=== PATIENT | female | born 1990 | race American Indian/Alaskan Native ===

== ENCOUNTER 2017-05-26 07:35 | Day surgery (SDC) | payer OTHER ==
[~2017-05-26 07:35] MED LIST: ANCEF/STERILE WATER 2 GM/20 ML 2 GM/20 ML SYRINGE IV NR; DECADRON ONE; DILAUDID ONE; DIPRIVAN 10 MG/ML IV ONE; MARCAINE 0.25% INFILTRATI ONE; MARCAINE-EPI 0.25%-1:200,000 INFILTRATI ONE; NACL 0.9% 1000 ML 1,000 ML IV SCH; NACL 0.9% IR ONE; PEPCID PO NR; VERSED IV NR; XYLOCAINE 1%/ EPI 1:100,000 INFILTRATI ONE; XYLOCAINE MPF 2% ONE; ZEMURON IV ONE; ZOFRAN ONE; ceFAZolin 2 GM in NACL 0.9% 100 ML IV ONE
[2017-05-26] MEDS ORDERED: XYLOCAINE 1%/ EPI 1:100,000 INFILTRATI ONE ×3 (08:00→09:34)
[2017-05-26] MEDS ORDERED: MARCAINE 0.25% INFILTRATI ONE ×3 (08:01→09:34)
--- NOTE | 2017-05-26 08:23 | Anesthesia Day of Surgery ---
Anesthesia Day of Surgery - Day of Surgery Patient Examined: Yes Patient H&P Reviewed: Yes Patient is NPO: Yes
--- NOTE | 2017-05-26 08:27 | Anesthesia Consultation ---
Anesthesia Consult and Med Hx Date of service: 05/26/17 - Airway Anesthetic Teeth Evaluation: Good ROM Head & Neck: Adequate Mental/Hyoid Distance: Adequate Mallampati Class: Class II Intubation Access Assessment: Probably Good - Pulmonary Exam CTA: Yes - Cardiac Exam Cardiac Exam: RRR - Pre-Operative Health Status ASA Pre-Surgery Classification: ASA2 Proposed Anesthetic Plan: General - Pulmonary Hx Smoking: Yes ([employer] 3YRS) Hx Asthma: No COPD: No Hx Pneumonia: No Hx Sleep Apnea: No - Cardiovascular System Hx Heart Murmur: Yes - Central Nervous System Hx Seizures: No Hx Psychiatric Problems: No - Gastrointestinal Hx Gastroesophageal Reflux Disease: Yes - Hematic Hx Anemia: Yes Hx Sickle Cell Disease: No - Other Systems Hx Substance Use: Yes (marijuana occassionally) Hx Cancer: No
[2017-05-26] MEDS ORDERED: NACL BACTERIOSTATIC INFILTRATI ONE (08:33)
[2017-05-26 08:47] VITALS: BP 125/80
[2017-05-26] MEDS ORDERED: VERSED IV ONE (09:16)
[2017-05-26] MEDS ORDERED: DILAUDID IV PRN (09:26)
[2017-05-26] MEDS ORDERED: NACL 0.9% IR ONE (09:57)
[2017-05-26] MEDS ORDERED: ZOFRAN IV PRN (10:00)
[2017-05-26] MEDS ORDERED: PERCOCET 5/325 PO PRN (10:00)
--- NOTE | 2017-05-26 10:22 | Operative Report ---
Operative Report Operative Report: Date of procedure: 05/26/2017 Pre-operative diagnosis: Anterior chest wall Soft tissue mass Post-operative diagnosis: Same Procedure name(s): Excision of anterior chest wall soft tissue mass Surgeon: Henrik Santa MD Clip Baker: None Anesthesia: Mac, 0.25% Marcaine, 1% lidocaine EBL: Minimal Complications: None Instrument Count: Accurate Indications: This is a 27-year-old female with a history of an enlarging anterior chest wall soft tissue mass that initially showed signs of infection. She was placed on antibiotics which resolved the infection and offered the above named procedure as a possible treatment modality to decrease the risk of recurrence. Risks and benefits were discussed until all questions were answered. She was subsequently brought to the OR. Findings: 3-4 cm subcutaneous soft tissue mass Procedure: We reviewed the informed consent. The patient was then placed supine upon the table. After adequate anesthesia was reached, the patient was prepped and draped in the usual sterile fashion. We infiltrated local anesthetic in a field block manner. We then made an incision through the skin using a 15 blade. His was done in an elliptical manner around a central drainage site consistent with a pore. Dissection was carried down to the soft tissue mass and was dissected free from surrounding fascial attachments. The findings were consistent with what was noted above. We the mass and handed off the table to be sent to pathology for further evaluation. We then ensured hemostasis. Approximated the subcutaneous tissues using a 3-0 Vicryl. We used 4-0 Monocryl to close the skin. The wound was bandaged sterilely. The patient tolerated procedure well, was awakened and transferred to recovery room in no apparent distress.
--- NOTE | 2017-05-26 10:24 | Short Stay Summary ---
Short Stay Documentation Date of service: 05/26/17 - Allergies and Medications Current Medications: Allergies No Known Allergies Allergy (Verified 08/21/14 09:39) Home Medications Medication Instructions Recorded Confirmed Last Taken Type Mv,Ca,Min/Iron Fum/FA/Lyco/Lut 1 tab PO DAILY 08/21/14 05/26/17 05/19/17 History [Complete Multi Tablet] Active Medications Famotidine (Pepcid) 20 mg PO PREOP NR Stop: 05/26/17 21:00 Last Admin: 05/26/17 08:43 Dose: 20 mg Hydromorphone HCl (Dilaudid) 0.5 mg IV Q10MIN PRN PRN Reason: Pain , Severe (7-10) Stop: 05/26/17 15:00 Sodium Chloride (Nacl 0.9% 1000 Ml) 1,000 mls @ 75 mls/hr IV DIRECT KUN Last Admin: 05/26/17 08:35 Dose: 75 mls/hr Cefazolin Sodium (Ancef/Sterile Water 2 Gm/20 Ml) 2 gm in 20 mls @ 80 mls/hr IV PREOP NR Stop: 05/26/17 23:59 Midazolam HCl (Versed) 2 mg IV PREOP NR Stop: 05/26/17 23:59 Last Admin: 05/26/17 08:57 Dose: 2 mg - Brief post op/procedure progress note Date of procedure: 05/26/17 Pre-op diagnosis: anterior chest wall soft tissue mass Post-op diagnosis: same Procedure: Excision of anterior chest wall soft tissue mass Anesthesia: MAC, local Surgeon: YAMILA URENA Estimated blood loss: minimal Pathology: list (soft tissue mass) Specimen disposition: to lab Condition: stable - Disposition Condition at discharge: Stable Disposition: DC- TO HOME OR SELFCARE Short Stay Discharge Plan Activity: no restrictions Diet: regular Wound: remove dressing (in 2 days) Follow up with: SOY KEEN MD [Primary Care Provider] - 7 Days YAMILA URENA MD [Staff Physician] - 7 Days Forms: [facility] [place] [facility]
== END 2017-05-26 11:05 | disposition home or self-care (01) ==
LOC: OR 07:35
PROVIDERS: ATTEND Surgery
DX: M79.89 Other specified soft tissue disorders (principal); K21.9 Gastro-esophageal reflux disease without esophagitis; D64.9 Anemia, unspecified; F12.90 Cannabis use, unspecified, uncomplicated; Z87.891 Personal history of nicotine dependence; Z98.890 Other specified postprocedural states; Z79.899 Other long term (current) drug therapy; Z72.89 Other problems related to lifestyle; Z83.3 Family history of diabetes mellitus
CPT/HCPCS: 21556; 81025; 88305; J0690; J1170; J2250; J2405; J2704; J7030; 88307; J1100

== ENCOUNTER 2022-03-02 04:53 | Emergency (ER) | payer OTHER ==
[2022-03-02] MEDS ORDERED: TETANUS,DIPH,PERTUSS(ACELL) VACCINE 0.5 ML SYRINGE IM ONE (07:45)
[2022-03-02] MEDS ORDERED: CYCLOBENZAPRINE 10 MG TAB PO ONE (07:48)
[2022-03-02] MEDS ORDERED: LIDOCAINE-MPF (1%) 10 MG/1 ML VIAL 5 ML INFILTRATI ONE (07:48)
[2022-03-02] MEDS ORDERED: KETOROLAC 10 MG TAB PO ONE (07:48)
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
[2022-03-02 09:44] VITALS: BP 131/89
== END 2022-03-02 09:38 | disposition home or self-care (01) ==
LOC: ED 04:53
DX: S61.411A Laceration without foreign body of right hand, initial encounter (principal); S80.212A Abrasion, left knee, initial encounter; M54.2 Cervicalgia; F17.200 Nicotine dependence, unspecified, uncomplicated; Z79.899 Other long term (current) drug therapy; V87.7XXA Person injured in collision between other specified motor vehicles (traffic), initial encounter; Y93.89 Activity, other specified; Y92.488 Other paved roadways as the place of occurrence of the external cause; Y99.8 Other external cause status
CPT/HCPCS: 12002; 73562; 90471; 90715; 99283; J3490